=== PATIENT | female | born 1950 | race Caucasian/White ===

== ENCOUNTER 2020-12-23 08:50 | Inpatient (IN) | payer OTHER, SELFPAY ==
[2020-12-23] VITALS (24 sets, daily range): BP systolic 125–171; BP diastolic 74–90; PULSE 70–104; RESP 10–31; TEMP 35.9–36.9; O2SAT 92–99
--- NOTE | 2020-12-23 09:01 | ED.GENADUL_ITS ---
Discharge Plan Disposition Patient Disposition: [facility] INPATIENT Condition: Stable Discharge Details Clinical Impression: SBO (small bowel obstruction) Admit Date/Time: 12/23/20 15:47 Admit Provider: Rizwan Mesa Attending Provider: Rizwan Mesa Primary Care Provider: Angelica,Local ED Provider: Edmundo Slaughter Discharge Data Discharge Date/Time-TO BE ENTERED AT DEPARTURE: 12/23/20 16:25 Medical Decision Making <GRIS Candelario - Last Filed: 12/23/20 14:58> 69-year-old female, significant past surgical abdominal history, presents for 3- day history of nausea, vomiting described more as dry heaving, crampy diffuse abdominal pain, chronic loose stools. She is concerned of dehydration. Clinically she appears well, nontoxic, no distress. Abdomen is diffusely tender but without guarding, rebound or rigidity. Will obtain IV access, give IV fluids, routine laboratory values, Zofran, urinalysis, reassess. Patient received 1 L IV fluids, reports that her symptoms are improving, requesting something to eat. She was given a small run of water and some Jell- O. Laboratory values reveal a white blood cell count of 9.37 hemoglobin 15.7 hematocrit 47.1 platelet count 267. Potassium 4.1 anion gap 15.8 BUN 53 creatinine of 1.6, bilirubin 1.6, urinalysis 80 ketones. Patient will be given a second liter of IV fluid and will repeat CMP. In the meantime she is resting comfortably. The case was discussed with Dr. Cutler, please see his note. Upon his evaluation the patient reports that her pain is returning. He reports that her abdomen is tender, recommend CT imaging. CT imaging noncontrast will be obtained. Second liter given, repeat laboratory values reveal anion gap decreasing 13.3 BUN 47 creatinine 1.2 GFR 44.68, total bili 1.2. CT imaging without contrast read by radiology as findings consistent with a small bowel obstruction, transition appears to lie in the region of the mid and distal small bowel. Patient had multiple abdominal surgeries and adhesions should be considered. No abscess or free air. Discussed findings with patient. Upon reevaluation patient reports that her pain is once again decreasing. Thus far she was able to tolerate a small line of p.o. intake, water, Jell-O, did have a bowel movement today. It is a rather peculiar presentation for bowel obstruction but the CT is clearly a bowel obstruction. We will discussed the case with surgery for consultation and/or admission. Given the patient is not actively vomiting, will hold off on NG tube. Case discussed with our surgical team, Dr. Mesa. He is agreeable to admission, will come evaluate the patient here in the ER. He does request an NG tube be placed. This conversation was relayed to the patient, NG tube placed. Medical Records Medical records reviewed: Yes I reviewed the patient's medical records. Imaging Data Radiologic Study: Attestation: I personally reviewed and interpreted this imaging study as follows: Imaging: CT Scan Radiologist's impression: CT abdomen and pelvis without contrast, small bowel obstruction Lab Data Lab results reviewed: Yes I reviewed the patient's lab results. Labs: Laboratory Tests Range/Units 12/23/20 12/23/20 12/23/20 09:28 09:28 12:03 WBC (4.4-10.8) 10^3/uL 9.37 RBC (3.93-5.22) 10^6/uL 4.83 Hgb (11.2-15.7) g/dL 15.7 Hct (36.0-46.0) % 47.1 H MCV (80-95) fL 97.5 H MCH (27.0-33.0) pg 32.5 MCHC (32.0-36.0) % 33.3 RDW (11.7-14.6) % 11.7 Plt Count (130-400) 10^3/uL 267 MPV (8.0-11.0) fL 9.5 Immature Gran % 0.4 Neutrophils % 76.2 Lymphocytes % 9.4 Monocytes % 12.9 Eosinophils % 0.5 Basophils % 0.6 Nucleated RBC % % 0 Absolute Neutrophils (1.2-6.7) 10^3/uL 7.13 H Absolute Lymphocytes (1.2-3.4) 10^3/uL 0.88 L Absolute Monocytes (0.1-0.8) 10^3/uL 1.21 H Absolute Eosinophils (0.0-0.7) 10^3/uL 0.05 Absolute Basophils (0.0-0.2) 10^3/uL 0.06 Sodium (136-145) mmol/L 137 Potassium (3.5-5.1) mmol/L 4.1 Chloride (98-107) mmol/L 99 Carbon Dioxide (21.0-32.0) mmol/L 22.2 Anion Gap (3-11) mmol/L 15.8 H BUN (7-18) mg/dL 53 H Creatinine (0.55-1.02) mg/dL 1.6 H Estimated GFR/1.73 m2 (mL/min/1.73m2) 32.05 Glucose (74-106) mg/dL 90 Calcium (8.5-10.1) mg/dL 9.7 Total Bilirubin (0.2-1.0) mg/dL 1.6 H AST (15-37) U/L 19 ALT (14-59) U/L 16 Alkaline Phosphatase (46-116) U/L 83 Total Protein (6.4-8.2) g/dL 8.3 H Albumin (3.4-5.0) g/dL 4.1 Lipase (73-393) U/L 154 Urine Color (Yellow) Yellow Urine Clarity (Clear) Clear Urine pH (5-8) 5.5 Ur Specific [place] (1.005-1.025) 1.025 Urine Protein (Negative) mg/dL 30 H Urine Ketones (Negative) mg/dL 80 H Urine Blood (Negative) Negative Urine Nitrite (Negative) Negative Urine Bilirubin (Negative) Moderate H Urine Urobilinogen (Up TO 0.2) EU/dL 0.2 Ur Leukocyte Esterase (Negative) Negative Urine RBC (0-2) HPF 0-2 Urine WBC (0-5) HPF 3-5 Ur Epithelial Cells (Negative) HPF Few Urine Crystals (Negative) HPF Negative Urine Bacteria (Negative) HPF Negative Urine Casts (Negative) LPF 3-5 hyaline Urine Mucus (Negative) Trace Ur Culture Indicated? No Urine Glucose (Negative) mg/dL Negative Range/Units 12/23/20 13:06 WBC (4.4-10.8) 10^3/uL RBC (3.93-5.22) 10^6/uL Hgb (11.2-15.7) g/dL Hct (36.0-46.0) % MCV (80-95) fL MCH (27.0-33.0) pg MCHC (32.0-36.0) % RDW (11.7-14.6) % Plt Count (130-400) 10^3/uL MPV (8.0-11.0) fL Immature Gran % Neutrophils % Lymphocytes % Monocytes % Eosinophils % Basophils % Nucleated RBC % % Absolute Neutrophils (1.2-6.7) 10^3/uL Absolute Lymphocytes (1.2-3.4) 10^3/uL Absolute Monocytes (0.1-0.8) 10^3/uL Absolute Eosinophils (0.0-0.7) 10^3/uL Absolute Basophils (0.0-0.2) 10^3/uL Sodium (136-145) mmol/L 137 Potassium (3.5-5.1) mmol/L 4.1 Chloride (98-107) mmol/L 102 Carbon Dioxide (21.0-32.0) mmol/L 21.7 Anion Gap (3-11) mmol/L 13.3 H BUN (7-18) mg/dL 47 H Creatinine (0.55-1.02) mg/dL 1.2 H Estimated GFR/1.73 m2 (mL/min/1.73m2) 44.68 Glucose (74-106) mg/dL 100 Calcium (8.5-10.1) mg/dL 8.7 Total Bilirubin (0.2-1.0) mg/dL 1.2 H AST (15-37) U/L 17 ALT (14-59) U/L 14 Alkaline Phosphatase (46-116) U/L 74 Total Protein (6.4-8.2) g/dL 7.4 Albumin (3.4-5.0) g/dL 3.6 Lipase (73-393) U/L Urine Color (Yellow) Urine Clarity (Clear) Urine pH (5-8) Ur Specific [place] (1.005-1.025) Urine Protein (Negative) mg/dL Urine Ketones (Negative) mg/dL Urine Blood (Negative) Urine Nitrite (Negative) Urine Bilirubin (Negative) Urine Urobilinogen (Up TO 0.2) EU/dL Ur Leukocyte Esterase (Negative) Urine RBC (0-2) HPF Urine WBC (0-5) HPF Ur Epithelial Cells (Negative) HPF Urine Crystals (Negative) HPF Urine Bacteria (Negative) HPF Urine Casts (Negative) LPF Urine Mucus (Negative) Ur Culture Indicated? Urine Glucose (Negative) mg/dL <Matthew Cutler MD - Last Filed: 01/11/21 00:36> Patient seen, examined, and discussed with PA. Patient is significantly tender lower abdomen with some guarding. Plan to obtain CT the abdomen pelvis to assess for acute surgical pathology. I reviewed labs and given GFR, will not enhance with contrast. I agree with treatment plan as discussed with GRIS Slaughter. HPI <GRIS Candelario - Last Filed: 12/23/20 14:58> General Mode of arrival: ambulatory . Date/Time Provider Initiated Documentation: 12/23/20 09:00 . Limitations to Documentation: no limitations . Information obtained by: patient . HPI Narrative: This is a 69-year-old female who reports nausea, dry heaving, decreased p.o. intake, abdominal cramping that began on Wednesday. Her primary concern is that of dehydration. She states that she has had now 4 episodes of similar symptoms over the past couple of years although this episode has lasted longer than the others. She had an endoscopy last year, colonoscopy 4 years ago. She states that she splits time between here in [place] but her healthcare is in [place]. She has not seen a general surgeon or GI specialist for her ongoing intermittent symptoms. She denies recent travel, sick contacts, bad food exposure. She denies fever, chest pain, shortness of breath, back pain, dysuria, hematuria, black tarry stools or bright red blood in her stools. She states that she plans to return to [place] on Wednesday. Has had increased stress lately. She reports that she takes magnesium daily and this causes her to have chronically loose stools. Related Data Home Medications Medication Instructions Recorded Confirmed B12 Active 1,000 mcg PO DAILY 12/23/20 acetaminophen [Tylenol Extra 500 mg PO PRN PRN 12/23/20 12/23/20 Strength] ibandronate [Boniva] 50 mg PO QMONTH 12/23/20 magnesium oxide 400 mg PO DAILY 12/23/20 12/23/20 sertraline 5 mg PO PRN PRN 12/23/20 12/23/20 Allergies Allergy/AdvReac Type Severity Reaction Status Date / Time codeine AdvReac Intermediate nausea/dizz Unverified 12/23/20 09:04 iness oxycodone [From Percocet] AdvReac Intermediate nausea/dizz Unverified 12/23/20 09:04 iness Review of Systems <GRIS Candelario - Last Filed: 12/23/20 14:58> Constitutional Constitutional: Denies fatigue, Denies fever(s) and Denies headache(s) ENT Ears, Nose, Mouth, and Throat: Denies headache(s) Cardiovascular Cardiovascular: Denies chest pain and Denies dyspnea Respiratory Respiratory: Denies cough and Denies dyspnea Gastrointestinal Gastrointestinal: Reports abdominal pain, Denies melena, Denies hematochezia, Denies constipation, Denies diarrhea, Reports loose stools, Reports nausea and Reports vomiting Genitourinary Genitourinary: Denies dysuria Musculoskeletal Musculoskeletal: Denies back pain Integumentary/Breasts Skin/Breast: Denies rash Neurologic Neurologic: Denies headache(s) Endocrine Endocrine: Denies fatigue PFSH <GRIS Candelario - Last Filed: 12/23/20 14:58> Medical History (Updated 12/23/20 @ 23:42 by Rizwan Mesa DO) Endometriosis determined by laparoscopy Ovarian cancer Surgery in 2014 Surgical History (Updated 12/23/20 @ 23:41 by Rizwan Mesa DO) History of appendectomy History of total abdominal hysterectomy and bilateral salpingo-oophorectomy Ovarian cancer in 2014 Social History Smoking/Tobacco Use Status: Former Tobacco Use Quit Date: 07/19/86 Smoking risk assessment performed?: Yes Alcohol Intake: current Alcohol Intake frequency: 0-2 drinks per day Alcohol type: wine Substance use type: does not use Do you feel safe at home: Yes Do you feel safe in your relationship?: Yes Exam <GRIS Candelario - Last Filed: 12/23/20 14:58> Const General: cooperative, healthy appearing, comfortable and no acute distress Orientation: alert and awake [facility] Head: normal to inspection, normocephalic and atraumatic Face and sinus: normal facial exam Mouth: moist mucous membranes abnormal (Slightly dry) Eyes General: appearance normal, both eyes and all related structures Conjunctivae: conjunctivae normal Neck Neck: normal visual inspection, full ROM, trachea midline and supple Resp Effort & Inspection: normal respiratory effort and able to speak in complete sentences Auscultation: clear to auscultation bilaterally Cardio Rate: regular rate Rhythm: regular rhythm GI Palpation: soft, not firm, no guarding, no pulsatile masses and tender (Diffuse, mild) Auscultation: normal bowel sounds Back/Spine/Pelvis Back: No back tenderness Skin General skin exam: no rashes or lesions noted Neuro General: patient alert, patient awake, moves all extremities and no focal motor deficits Cognition: normal cognition Speech: speech normal Gait: normal gait Sensory Exam: no sensory deficits noted Psych Appearance: grossly normal Mental Status: mental status grossly normal
[2020-12-23] MEDS: Normal Saline 1,000 ML 1000 ML IV (09:35)
[2020-12-23] MEDS: Ondansetron 4 MG/2 ML VIAL IVP (09:36)
[2020-12-23 09:40] LABS: Abs Immature Grans 0.04 10^3/uL (0.0-0.06); Absolute Basophil Count 0.06 10^3/uL (0.0-0.2); Absolute Eosinophil Count 0.05 10^3/uL (0.0-0.7); Absolute Lymphocyte Count 0.88 10^3/uL (1.2-3.4); Absolute Monocyte Count 1.21 10^3/uL (0.1-0.8); Absolute Neutrophil Count 7.13 10^3/uL (1.2-6.7); Basophils % 0.6; Eosinophils % 0.5; HCT 47.1 % (36.0-46.0); HGB 15.7 g/dL (11.2-15.7); Immature Grans % 0.4; Lymphocytes % 9.4; MCH 32.5 pg (27.0-33.0); MCHC 33.3 % (32.0-36.0); MCV 97.5 fL (80-95); MPV 9.5 fL (8.0-11.0); Monocytes % 12.9; Neutrophils % 76.2; Nucleated RBC 0 %; Platelet Count 267 10^3/uL (130-400); RBC 4.83 10^6/uL (3.93-5.22); RDW 11.7 % (11.7-14.6); RDW-SD 42.4 fL; WBC 9.37 10^3/uL (4.4-10.8)
--- NOTE | 2020-12-23 09:45 | DI.US_ITS ---
Exam(s) US ABDOMEN LIMITED EXAM: US ABDOMEN LIMITED CLINICAL HISTORY: RUQ, pain, elevated bili TECHNIQUE: Ultrasound abdomen performed using standard protocol. COMPARISON: No exams were available for comparison FINDINGS: Limited examination of the abdomen. PANCREAS: Normal where visualized. LIVER: Normal. Hepatopedal flow in the Portal Vein. The liver measures 15.5 cm in length. GALLBLADDER: No evidence of cholelithiasis. No evidence of wall thickening. No pericholecystic fluid identified. BILIARY SYSTEM: Common bile duct measures 0.8 cm. No intrahepatic biliary ductal dilation. PEREZ'S SIGN: Negative. Right kidney: Normal in size. There does appear to be an extrarenal pelvis. No evidence of renal ca lculi. No evidence of hydronephrosis. No renal mass or cyst identified. ASCITES: None seen. IMPRESSION: 1. No evidence of cholelithiasis. No evidence of acute cholecystitis. 2. Common duct mildly distended at 0.8 cm. 3. Results of this exam have been verbally communicated with provider. DATA REPOSITORY:
--- NOTE | 2020-12-23 09:45 | NUR.NOTE ---
pt taking sips of water Nursing Note:
[2020-12-23 09:54] LABS: ALT 16 U/L (14-59); AST 19 U/L (15-37); Albumin 4.1 g/dL (3.4-5.0); Alkaline Phosphatase 83 U/L (46-116); Anion Gap 15.8 mmol/L (3-11); BUN 53 mg/dL (7-18); Bilirubin, Total 1.6 mg/dL (0.2-1.0); CO2 22.2 mmol/L (21.0-32.0); CREATININE 1.6 mg/dL (0.55-1.02); Calcium 9.7 mg/dL (8.5-10.1); Chloride 99 mmol/L (98-107); Estimated GFR 32.05 (mL/min/1.73m2); Glucose 90 mg/dL (74-106); Lipase 154 U/L (73-393); Potassium 4.1 mmol/L (3.5-5.1); Sodium 137 mmol/L (136-145); Total Protein 8.3 g/dL (6.4-8.2)
--- NOTE | 2020-12-23 10:12 | NUR.NOTE ---
tolerating PO water Nursing Note:
[2020-12-23] MEDS: Lactated Ringers 1,000 ML 1000 ML IV (11:15)
[2020-12-23 12:15] LABS: Bilirubin Moderate (Negative); Blood Negative (Negative); Clarity Clear (Clear); Glucose Negative (Negative); Ketones 80 mg/dL (Negative); Leukocyte Esterase Negative (Negative); Nitrite Negative (Negative); Specific Gravity 1.025 (1.005-1.025); Urobilinogen 0.2 EU/dL (Up TO 0.2); pH 5.5 (5-8)
[2020-12-23 12:26] LABS: Epithelial Cells Few HPF (Negative); RBC 0-2 HPF (0-2)
[2020-12-23 12:27] LABS: Bacteria Negative HPF (Negative); C & S Indicated? No; Casts 3-5 Hyaline LPF (Negative); Crystals Negative HPF (Negative); Mucus Trace (Negative)
[2020-12-23 13:39] LABS: ALT 14 U/L (14-59); AST 17 U/L (15-37); Albumin 3.6 g/dL (3.4-5.0); Alkaline Phosphatase 74 U/L (46-116); Anion Gap 13.3 mmol/L (3-11); BUN 47 mg/dL (7-18); Bilirubin, Total 1.2 mg/dL (0.2-1.0); CO2 21.7 mmol/L (21.0-32.0); CREATININE 1.2 mg/dL (0.55-1.02); Calcium 8.7 mg/dL (8.5-10.1); Chloride 102 mmol/L (98-107); Estimated GFR 44.68 (mL/min/1.73m2); Glucose 100 mg/dL (74-106); Potassium 4.1 mmol/L (3.5-5.1); Sodium 137 mmol/L (136-145); Total Protein 7.4 g/dL (6.4-8.2)
--- NOTE | 2020-12-23 14:14 | DI.CT_ITS ---
Exam(s) CT ABDOMEN PELVIS WO EXAM: CT ABDOMEN PELVIS WO CLINICAL HISTORY: abd pain. TECHNIQUE: Imaging Protocol: Axial computed tomography images with coronal and sagittal reformatted images were created and reviewed. COMPARISON: US US ABDOMEN LIMITED from 12/23/2020 FINDINGS: ABDOMEN: Lung Bases: Normal where visualized. Liver: Normal density. No measurable mass. Gallbladder and biliary tract: No cholelithiasis is identified. Common duct is distended at 1 cm. Pancreas: Normal density, no abnormal calcifications or inflammatory process. Spleen: Normal. Kidneys: Normal size, contour and axis.No radiodense stones or obstructive uropathy. No masses seen. Adrenal glands: No mass is seen. Lymph nodes: Within normal limits. Abdominal Aorta: Abdominal portion non-dilated. Mild atherosclerosis. PELVIS: Bladder:Symmetric distention, no gross wall thickening. Bowel: There are dilated loops of small bowel with air-fluid levels measuring up to 3.8 cm in diamete r. There is normal caliber distal small bowel. The colon is normal in caliber. There is diverticul osis seen in the sigmoid colon but no evidence of acute diverticulitis. No evidence of appendicitis. Peritoneal cavity: There is mild infiltration of the mesentery. No focal fluid collection is seen to suggest an abscess. No free air. Reproductive organs: The patient appears to be status post hysterectomy. Bones: Within normal limits. Soft Tissues: Within normal limits. IMPRESSION: 1. Findings consistent with a small-bowel obstruction transition appears to lie in the region of the middle and distal small bowel. The patient has had multiple abdominal surgeries and adhesions should be considered. No abscess or free air. 2. Extrahepatic biliary ductal dilatation. No cholelithiasis. Follow-up as clinically appropriate. 3. Results of this exam have been verbally communicated with provider.. RADIATION DOSE DELIVERED: 733.63mGy.cm Total DLP DATA REPOSITORY: All CT scans at this facility are submitted to the National Radiology Data Registry (NRDR) Dose Index Registry (DIR) with the [employer] (ACR). RADIATION OPTIMIZATION: All CT scans at this facility use at least one of these dose optimization te chniques: automated exposure control; mA and/or kV adjustment per patient size (includes targeted exa ms where dose is matched to clinical indication); or iterative reconstruction.
[2020-12-23] MEDS: ACETAMINOPHEN 1,000 MG/100 ML BTL 400 MG IVPB ×2 (14:32→20:10)
[2020-12-23 15:14] LABS: Source Nasal/Nares
[2020-12-23] MEDS: Lidocaine 2% Jelly 6 ML SYR (15:25)
[2020-12-23 16:12] LABS: Abs Immature Grans 0.04 10^3/uL (0.0-0.06); Absolute Basophil Count 0.04 10^3/uL (0.0-0.2); Absolute Eosinophil Count 0.08 10^3/uL (0.0-0.7); Absolute Lymphocyte Count 0.95 10^3/uL (1.2-3.4); Absolute Monocyte Count 1.01 10^3/uL (0.1-0.8); Absolute Neutrophil Count 5.25 10^3/uL (1.2-6.7); Basophils % 0.5; Eosinophils % 1.1; HCT 38.1 % (36.0-46.0); Immature Grans % 0.5; Lymphocytes % 12.9; MCH 33.1 pg (27.0-33.0); MCHC 33.9 % (32.0-36.0); MCV 97.7 fL (80-95); MPV 9.3 fL (8.0-11.0); Monocytes % 13.7; Neutrophils % 71.3; Nucleated RBC 0 %; Platelet Count 223 10^3/uL (130-400); RDW 11.8 % (11.7-14.6); RDW-SD 42.3 fL; WBC 7.37 10^3/uL (4.4-10.8)
[2020-12-23 16:13] LABS: HGB 12.9 g/dL (11.2-15.7)
[2020-12-23 16:27] LABS: Troponin I < 0.05 ng/mL (<0.06)
[2020-12-23] MEDS: Normal Saline 1,000 ML 150 ML IV (17:50)
[2020-12-23 19:14] LABS: Troponin I < 0.05 ng/mL (<0.06)
[2020-12-23 21:02] LABS: COVID-19 PCR Negative (Negative)
[2020-12-23] MEDS: HYDROmorphone 2 MG/ML VIAL 0.5 MG IVP (21:33)
--- NOTE | 2020-12-23 21:35 | HPE_ITS ---
Date of service: 12/23/20 Time of Service: 21:00 Assessment and Plan Assessment and plan (1) SBO (small bowel obstruction): Start date: 12/19/20 Status: Acute Assessment and plan: N.p.o. NG tube to low intermittent wall suction. IV fluids. A.m. labs. May ambulate for 30 minutes with tube clamped. May have ice chips while tube on suction. Pain control History of Present Illness History of Present Illness Chief Complaint: Abdominal pain and nausea vomiting Narrative: This is a very pleasant 69-year-old female who came in with a 4-day history of abdominal pain nausea vomiting and diarrhea. She has a history of multiple abdominal surgeries including for bowel obstruction, appendicitis, endometriosis and ovarian cancer in 2014. She had a watery bowel movement last night and last vomited 2 days ago. She denies any fever or chills. Palpation makes the pain worse, nothing makes it better. The pain is constant and dull, located in the mid abdomen. A CT of the abdomen is consistent with a partial small bowel obstruction. Review of Systems All systems reviewed & are unremarkable except as noted in HPI and below PFSH Medical History (Updated 12/23/20 @ 23:42 by Rizwan Mesa DO) Endometriosis determined by laparoscopy Ovarian cancer Surgery in 2014 Surgical History (Updated 12/23/20 @ 23:41 by Rizwan Mesa DO) History of appendectomy History of total abdominal hysterectomy and bilateral salpingo-oophorectomy Ovarian cancer in 2014 Social History Smoking/Tobacco Use Status: Former Tobacco Use Quit Date: 07/19/86 Smoking risk assessment performed?: Yes Alcohol Intake: current Alcohol Intake frequency: 0-2 drinks per day Alcohol type: wine Substance use type: does not use Do you feel safe at home: Yes Do you feel safe in your relationship?: Yes Meds Allergies and Home Medications Allergies Allergy/AdvReac Type Severity Reaction Status Date / Time codeine AdvReac Intermediate nausea/dizz Unverified 12/23/20 09:04 iness oxycodone [From Percocet] AdvReac Intermediate nausea/dizz Unverified 12/23/20 09:04 iness Home Medications Medication Instructions Recorded Confirmed Type acetaminophen [Tylenol Extra 500 mg PO PRN PRN 12/23/20 12/23/20 History Strength] ibandronate [Boniva] 50 mg PO QMONTH 12/23/20 History magnesium oxide 400 mg PO DAILY 12/23/20 12/23/20 History mecobalamin (vitamin B12) [B12 1,000 mcg PO DAILY 12/23/20 History Active] sertraline 5 mg PO PRN PRN 12/23/20 12/23/20 History Exam Const General: cooperative and healthy appearing Nutritional Appearance: average body habitus Orientation: alert, awake and oriented x3 [place]EN[place] Head: normal to inspection, normocephalic and atraumatic Eyes General: appearance normal, both eyes and all related structures Conjunctivae: conjunctivae normal Pupils: PERRL Neck Neck: normal visual inspection, full ROM and trachea midline Chest Chest: normal inspection of the chest and normal palpation of entire chest wall Resp Effort & Inspection: normal respiratory effort, able to speak in complete sentences and no use of accessory muscles Cardio Jugular venous pressure: no JVD Rate: regular rate Rhythm: regular rhythm GI Inspection: distended Palpation: soft and tender Skin General skin exam: no rashes or lesions noted Lesions: no lesions Neuro General: patient alert, patient awake, patient oriented x3 and moves all extremities Extrem General: normal to inspection and full ROM Psych Appearance: grossly normal and well kempt Mental Status: mental status grossly normal Speech and Movement: speech and movement normal Results Labs Result diagrams: 12/23/20 16:06 12/23/20 13:06 Labs: Laboratory Results - last 24 hr 12/23/20 12/23/20 12/23/20 09:28 09:28 12:03 WBC 9.37 RBC 4.83 Hgb 15.7 Hct 47.1 H MCV 97.5 H MCH 32.5 MCHC 33.3 RDW 11.7 Plt Count 267 MPV 9.5 Immature Gran % 0.4 Neutrophils % 76.2 Lymphocytes % 9.4 Monocytes % 12.9 Eosinophils % 0.5 Basophils % 0.6 Nucleated RBC % 0 Absolute Neutrophils 7.13 H Absolute Lymphocytes 0.88 L Absolute Monocytes 1.21 H Absolute Eosinophils 0.05 Absolute Basophils 0.06 Sodium 137 Potassium 4.1 Chloride 99 Carbon Dioxide 22.2 Anion Gap 15.8 H BUN 53 H Creatinine 1.6 H Estimated GFR/1.73 m2 32.05 Glucose 90 Calcium 9.7 Total Bilirubin 1.6 H AST 19 ALT 16 Alkaline Phosphatase 83 Troponin I Total Protein 8.3 H Albumin 4.1 Lipase 154 Urine Color Yellow Urine Clarity Clear Urine pH 5.5 Ur Specific [place] 1.025 Urine Protein 30 H Urine Ketones 80 H Urine Blood Negative Urine Nitrite Negative Urine Bilirubin Moderate H Urine Urobilinogen 0.2 Ur Leukocyte Esterase Negative Urine RBC 0-2 Urine WBC 3-5 Ur Epithelial Cells Few Urine Crystals Negative Urine Bacteria Negative Urine Casts 3-5 hyaline Urine Mucus Trace Ur Culture Indicated? No Urine Glucose Negative COVID-19 Source SARS-CoV-2 (PCR) 12/23/20 12/23/20 12/23/20 13:06 15:08 16:06 WBC RBC Hgb Hct MCV MCH MCHC RDW Plt Count MPV Immature Gran % Neutrophils % Lymphocytes % Monocytes % Eosinophils % Basophils % Nucleated RBC % Absolute Neutrophils Absolute Lymphocytes Absolute Monocytes Absolute Eosinophils Absolute Basophils Sodium 137 Potassium 4.1 Chloride 102 Carbon Dioxide 21.7 Anion Gap 13.3 H BUN 47 H Creatinine 1.2 H Estimated GFR/1.73 m2 44.68 Glucose 100 Calcium 8.7 Total Bilirubin 1.2 H AST 17 ALT 14 Alkaline Phosphatase 74 Troponin I < 0.05 Total Protein 7.4 Albumin 3.6 Lipase Urine Color Urine Clarity Urine pH Ur Specific [place] Urine Protein Urine Ketones Urine Blood Urine Nitrite Urine Bilirubin Urine Urobilinogen Ur Leukocyte Esterase Urine RBC Urine WBC Ur Epithelial Cells Urine Crystals Urine Bacteria Urine Casts Urine Mucus Ur Culture Indicated? Urine Glucose COVID-19 Source Nasal/nares SARS-CoV-2 (PCR) Negative 12/23/20 12/23/20 16:06 18:50 WBC 7.37 RBC 3.90 L Hgb 12.9 D Hct 38.1 MCV 97.7 H MCH 33.1 H MCHC 33.9 RDW 11.8 Plt Count 223 MPV 9.3 Immature Gran % 0.5 Neutrophils % 71.3 Lymphocytes % 12.9 Monocytes % 13.7 Eosinophils % 1.1 Basophils % 0.5 Nucleated RBC % 0 Absolute Neutrophils 5.25 Absolute Lymphocytes 0.95 L Absolute Monocytes 1.01 H Absolute Eosinophils 0.08 Absolute Basophils 0.04 Sodium Potassium Chloride Carbon Dioxide Anion Gap BUN Creatinine Estimated GFR/1.73 m2 Glucose Calcium Total Bilirubin AST ALT Alkaline Phosphatase Troponin I < 0.05 Total Protein Albumin Lipase Urine Color Urine Clarity Urine pH Ur Specific [place] Urine Protein Urine Ketones Urine Blood Urine Nitrite Urine Bilirubin Urine Urobilinogen Ur Leukocyte Esterase Urine RBC Urine WBC Ur Epithelial Cells Urine Crystals Urine Bacteria Urine Casts Urine Mucus Ur Culture Indicated? Urine Glucose COVID-19 Source SARS-CoV-2 (PCR) Last Vital Signs Temp 98.4 F 12/23/20 16:40 Pulse 77 12/23/20 16:40 Resp 17 12/23/20 16:40 BP 159/75 H 12/23/20 16:40 Pulse Ox 98 12/23/20 16:40 COVID-19 Screening Have you, or household traveled for leisure in last 14 days?: No Had IN PERSON contact w/suspected or confirmed C-19 person: No H&P: Quality VTE Documentation of Mechanical Device: Intermittent pneumatic compression stockings
[2020-12-24 00:01] VITALS: BP 140/82; PULSE 55; RESP 20; TEMP 36.7; O2SAT 97
[2020-12-24] MEDS: Normal Saline 1,000 ML 150 ML IV ×3 (00:31→17:26)
[2020-12-24] MEDS: HYDROmorphone 2 MG/ML VIAL 0.5 MG IVP ×3 (01:46→20:28)
[2020-12-24 06:09] LABS: Abs Immature Grans 0.02 10^3/uL (0.0-0.06); Absolute Basophil Count 0.04 10^3/uL (0.0-0.2); Absolute Eosinophil Count 0.04 10^3/uL (0.0-0.7); Absolute Lymphocyte Count 0.64 10^3/uL (1.2-3.4); Absolute Monocyte Count 1.21 10^3/uL (0.1-0.8); Absolute Neutrophil Count 6.45 10^3/uL (1.2-6.7); Basophils % 0.5; Eosinophils % 0.5; HCT 37.3 % (36.0-46.0); HGB 12.3 g/dL (11.2-15.7); Immature Grans % 0.2; Lymphocytes % 7.6; MCH 32.8 pg (27.0-33.0); MCV 99.5 fL (80-95); MPV 9.6 fL (8.0-11.0); Monocytes % 14.4; Neutrophils % 76.8; Nucleated RBC 0 %; Platelet Count 217 10^3/uL (130-400); RBC 3.75 10^6/uL (3.93-5.22); RDW 11.9 % (11.7-14.6); RDW-SD 43.7 fL
[2020-12-24 06:27] LABS: ALT 14 U/L (14-59); AST 14 U/L (15-37); Alkaline Phosphatase 62 U/L (46-116); Anion Gap 14.5 mmol/L (3-11); BUN 36 mg/dL (7-18); Bilirubin, Total 0.9 mg/dL (0.2-1.0); CO2 20.5 mmol/L (21.0-32.0); CREATININE 1.1 mg/dL (0.55-1.02); Calcium 7.8 mg/dL (8.5-10.1); Chloride 106 mmol/L (98-107); Estimated GFR 49.39 (mL/min/1.73m2); Glucose 72 mg/dL (74-106); Magnesium 1.7 mg/dL (1.8-2.4); Potassium 3.7 mmol/L (3.5-5.1); Sodium 141 mmol/L (136-145); Total Protein 6.1 g/dL (6.4-8.2)
[2020-12-24 08:03] VITALS: BP 133/79; PULSE 76; RESP 22; TEMP 37.5; O2SAT 97
[2020-12-24] MEDS: Normal Saline Flush 10 ML SYR IVP ×2 (09:29→20:28)
--- NOTE | 2020-12-24 11:04 | INITIAL_ITS ---
- If Service Date Differs Date of service: 12/24/20 Time of Service: 11:04 Care Management Initial Assess REASON FOR HOSPITALIZATION:: Partial Small Bowel Obstruction PAST MEDICAL HISTORY/PAST SURGICAL HISTORY:: Medical History. Endometriosis determined by laparoscopy. Ovarian cancer. Surgery in 2014. Surgical History. History of appendectomy. History of total abdominal hysterectomy and bilateral salpingo-oophorectomy. Ovarian cancer in 2014 PREVIOUS FUNCTIONAL STATUS/SOCIAL/FAMILY SUPPORTS:: Chaz splits her time between [place] and [place], but receives her primary medical care in [place]. She lives with her s/o, Ra, and they are both retired teachers. She is independent at baseline. CURRENT FUNCTIONAL STATUS:: Chaz was lying in bed when CM met with her. She has an NG tube in place. She stated that she is tired, as she did not sleep well last night. She reported that per provider, she will likely remain at [facility] for another couple of days, until her SBO is resolved. She stated that [facility], and is agreeable to the plan. Ra, whom she lives with, was in the room, visiting. CM will continue to follow. ADVANCE DIRECTIVES:: None on file. Has patient been provided with info about the portal/API?: Yes Did the patient sign up for the portal?: No CODE STATUS:: Full Code INSURANCE COVERAGE / FINANCIAL ISSUES:: Commercial MCR replacement- [employer] CURRENT HOME/COMMUNITY SERVICES/EQUIPMENT:: No current services or equipment. PRIMARY CARE PHYSICIAN:: Not local. POTENTIAL DISCHARGE NEEDS:: Follow up appointments with local PCP. PATIENT/FAMILY EDUCATION NEEDS:: Review discharge instructions regarding activity and medications, discussion of self care needs such as ask me three. ANTICIPATED BARRIERS TO DISCHARGE:: None identified. TRANSPORTATION:: Via private vehicle by a friend. PLAN:: Anticipate Chaz will return home via private vehicle once medically cleared. She will follow up with her local PCP and discharge plan of care. CM will continue to follow.
--- NOTE | 2020-12-24 12:13 | NUR.NOTE ---
Advanced NG tube to [address] Mesa's verbal order.
[2020-12-24] MEDS: ACETAMINOPHEN 1,000 MG/100 ML BTL 400 MG IVPB ×2 (12:20→21:21)
--- NOTE | 2020-12-24 12:50 | W.PM.PROGNOT ---
Date of Service Date of service: 12/24/20 Time of Service: 12:50 Assessment and Plan Assessment and plan (1) SBO (small bowel obstruction): Status: Acute Assessment and plan: Improving. N.p.o. NG tube to low intermittent wall suction. Tube was advanced to 60 cm today. IV fluids. A.m. labs. May ambulate for 30 minutes with tube clamped. May have ice chips while tube on suction. Pain control Subjective Subjective Interval history since last seen: Patient's abdominal pain and nausea have improved. She has not had any emesis overnight and is passing flatus and had a small liquid bowel movement. She ambulated in the halls today. Exam Const General: cooperative and healthy appearing Nutritional Appearance: average body habitus Orientation: alert, awake and oriented x3 Resp Effort & Inspection: normal respiratory effort, able to speak in complete sentences and no use of accessory muscles Cardio Jugular venous pressure: no JVD Rate: regular rate Rhythm: regular rhythm GI Inspection: distended Palpation: soft and tender Neuro General: patient alert, patient awake, patient oriented x3 and moves all extremities Objective Last Vital Signs Temp 99.5 F 12/24/20 08:03 Pulse 76 12/24/20 08:03 Resp 22 12/24/20 08:03 BP 133/79 12/24/20 08:03 Pulse Ox 97 12/24/20 08:03 Laboratory Results - last 24 hr 12/23/20 12/23/20 12/23/20 13:06 15:08 16:06 WBC RBC Hgb Hct MCV MCH MCHC RDW Plt Count MPV Immature Gran % Neutrophils % Lymphocytes % Monocytes % Eosinophils % Basophils % Nucleated RBC % Absolute Neutrophils Absolute Lymphocytes Absolute Monocytes Absolute Eosinophils Absolute Basophils Sodium 137 Potassium 4.1 Chloride 102 Carbon Dioxide 21.7 Anion Gap 13.3 H BUN 47 H Creatinine 1.2 H Estimated GFR/1.73 m2 44.68 Glucose 100 Calcium 8.7 Magnesium Total Bilirubin 1.2 H AST 17 ALT 14 Alkaline Phosphatase 74 Troponin I < 0.05 Total Protein 7.4 Albumin 3.6 COVID-19 Source Nasal/nares SARS-CoV-2 (PCR) Negative 12/23/20 12/23/20 12/24/20 16:06 18:50 05:40 WBC 7.37 RBC 3.90 L Hgb 12.9 D Hct 38.1 MCV 97.7 H MCH 33.1 H MCHC 33.9 RDW 11.8 Plt Count 223 MPV 9.3 Immature Gran % 0.5 Neutrophils % 71.3 Lymphocytes % 12.9 Monocytes % 13.7 Eosinophils % 1.1 Basophils % 0.5 Nucleated RBC % 0 Absolute Neutrophils 5.25 Absolute Lymphocytes 0.95 L Absolute Monocytes 1.01 H Absolute Eosinophils 0.08 Absolute Basophils 0.04 Sodium 141 Potassium 3.7 Chloride 106 Carbon Dioxide 20.5 L Anion Gap 14.5 H BUN 36 H D Creatinine 1.1 H Estimated GFR/1.73 m2 49.39 Glucose 72 L Calcium 7.8 L Magnesium 1.7 L Total Bilirubin 0.9 AST 14 L ALT 14 Alkaline Phosphatase 62 Troponin I < 0.05 Total Protein 6.1 L Albumin 3.0 L COVID-19 Source SARS-CoV-2 (PCR) 12/24/20 05:40 WBC 8.40 RBC 3.75 L Hgb 12.3 Hct 37.3 MCV 99.5 H MCH 32.8 MCHC 33.0 RDW 11.9 Plt Count 217 MPV 9.6 Immature Gran % 0.2 Neutrophils % 76.8 Lymphocytes % 7.6 Monocytes % 14.4 Eosinophils % 0.5 Basophils % 0.5 Nucleated RBC % 0 Absolute Neutrophils 6.45 Absolute Lymphocytes 0.64 L Absolute Monocytes 1.21 H Absolute Eosinophils 0.04 Absolute Basophils 0.04 Sodium Potassium Chloride Carbon Dioxide Anion Gap BUN Creatinine Estimated GFR/1.73 m2 Glucose Calcium Magnesium Total Bilirubin AST ALT Alkaline Phosphatase Troponin I Total Protein Albumin COVID-19 Source SARS-CoV-2 (PCR)
[2020-12-24] MEDS: MAGNESIUM SULFATE 2 GM/50 ML BAG IVPB (14:09)
--- NOTE | 2020-12-24 15:07 | CHAPLAIN ---
Chaz was resting in bed when I visited. She said she lives in [place] and was visiting her SO here, and travels between the two places, but her health care is usually in [place]. She's had similar symptoms before, but they haven't lasted this long, she said. Her SO is coming to visit and brining her a new book.
[2020-12-24 15:21] VITALS: BP 127/80; PULSE 84; RESP 16; TEMP 37.1; O2SAT 97
[2020-12-24 23:31] VITALS: BP 130/78; PULSE 82; RESP 17; TEMP 36.6; O2SAT 97
[2020-12-25] MEDS: HYDROmorphone 2 MG/ML VIAL 0.5 MG IVP ×3 (00:35→20:44)
[2020-12-25] MEDS: Normal Saline Flush 10 ML SYR IVP ×3 (00:36→20:44)
[2020-12-25] MEDS: Normal Saline 1,000 ML 150 ML IV ×4 (01:00→21:36)
[2020-12-25 07:39] VITALS: BP 131/71; PULSE 75; RESP 16; TEMP 36.2; O2SAT 96
--- NOTE | 2020-12-25 09:55 | CMPROGNOTE_ITS ---
- If Service Date Differs Date of service: 12/25/20 Time of Service: 09:55 Care Management Progress Note S/O: Chaz was sitting up in bed when CM met with her. Her NG tube has been removed, which she reports being happy about. She stated that she did not sleep well with the NG tube in place. She reported that she feels much better today, and per MD, she may be ready for discharge in the next day or two, depending on how she does without the NG tube, her pain control, and diet tolerance. CM will continue to follow. A: Chaz is a 69 year old female admitted to [facility] on 12/23/20 with a partial small bowel obstruction. P: Anticipate Chaz will return home via private vehicle once medically cleared. She will follow up with her local PCP and discharge plan of care. CM will continue to follow.
--- NOTE | 2020-12-25 10:06 | PGE_ITS ---
Date of Service Date of service: 12/25/20 Time of Service: 10:06 Assessment and Plan Assessment and plan (1) SBO (small bowel obstruction): Status: Acute Assessment and plan: Abdominal pain has improved (+) Flatus and BMs D/C NG tube Will start clear liquids Encouraged ambulation and activity OOB. Subjective Subjective Interval history since last seen: Patient reports her abdominal pain has improved signficiantly. She denies having any nausea or vomiting. (+) BMs and Fl atus. Exam Const General: cooperative, healthy appearing and comfortable Orientation: alert and oriented x3 Resp Effort & Inspection: normal respiratory effort, no audible wheezes and no cough GI Palpation: soft, no guarding and nontender Auscultation: normal bowel sounds Other: NG tube in place. Objective Last Vital Signs Temp 36.2 C L 12/25/20 07:39 Pulse 75 12/25/20 07:39 Resp 16 12/25/20 07:39 BP 131/71 12/25/20 07:39 Pulse Ox 96 12/25/20 07:39
[2020-12-25 11:26] LABS: Abs Immature Grans 0.01 10^3/uL (0.0-0.06); Absolute Basophil Count 0.04 10^3/uL (0.0-0.2); Absolute Eosinophil Count 0.08 10^3/uL (0.0-0.7); Absolute Lymphocyte Count 0.74 10^3/uL (1.2-3.4); Absolute Monocyte Count 0.92 10^3/uL (0.1-0.8); Absolute Neutrophil Count 4.02 10^3/uL (1.2-6.7); Basophils % 0.7; Eosinophils % 1.4; HCT 35.5 % (36.0-46.0); HGB 11.4 g/dL (11.2-15.7); Immature Grans % 0.2; Lymphocytes % 12.7; MCH 32.7 pg (27.0-33.0); MCHC 32.1 % (32.0-36.0); MCV 101.7 fL (80-95); MPV 9.6 fL (8.0-11.0); Monocytes % 15.8; Neutrophils % 69.2; Nucleated RBC 0 %; Platelet Count 209 10^3/uL (130-400); RBC 3.49 10^6/uL (3.93-5.22); RDW-SD 44.8 fL; WBC 5.81 10^3/uL (4.4-10.8)
[2020-12-25 11:34] LABS: Anion Gap 15.7 mmol/L (3-11); BUN 25 mg/dL (7-18); CO2 18.3 mmol/L (21.0-32.0); CREATININE 0.9 mg/dL (0.55-1.02); Calcium 7.5 mg/dL (8.5-10.1); Chloride 108 mmol/L (98-107); Potassium 3.6 mmol/L (3.5-5.1); Sodium 142 mmol/L (136-145)
[2020-12-25 11:44] LABS: Glucose 56 mg/dL (74-106)
--- NOTE | 2020-12-25 12:58 | CHAPLAIN ---
Chaz said she is feeling better today. Her NG tube is out and she'll be starting clear liquids at lunch today. She thinks she'll be here a day or two more. She's from [place], [place], but has a SO in the area here and was visiting when she became sick. She said she's been through this before, so knows what to expect.
[2020-12-25 16:10] VITALS: BP 137/72; PULSE 72; RESP 17; TEMP 36.4; O2SAT 98
[2020-12-25 23:00] VITALS: BP 136/74; PULSE 70; RESP 17; TEMP 36.3; O2SAT 98
[2020-12-26] MEDS: ACETAMINOPHEN 1,000 MG/100 ML BTL 400 MG IVPB (02:29)
[2020-12-26] MEDS: Normal Saline 1,000 ML 150 ML IV (04:27)
[2020-12-26 08:21] VITALS: BP 131/86; PULSE 70; RESP 17; TEMP 36.7; O2SAT 93
--- NOTE | 2020-12-26 09:27 | W.PM.PROGNOT ---
Date of Service Date of service: 12/26/20 Time of Service: 09:27 Assessment and Plan Assessment and plan (1) SBO (small bowel obstruction): Status: Acute Assessment and plan: Abdominal pain has resolved (+) Flatus and BMs D/C NG tube Will progress diet to full liquids and soft foods. Encouraged ambulation and activity OOB. If tolerating progression in her diet, possible d/c home later today. Subjective Subjective Interval history since last seen: Patient denies having any abdominal pain at this time. She is eager to be d/c home today. Exam Const General: cooperative, healthy appearing and comfortable Orientation: alert and oriented x3 Resp Effort & Inspection: normal respiratory effort, no audible wheezes and no cough GI Palpation: soft, no guarding and nontender Auscultation: normal bowel sounds Objective Last Vital Signs Temp 36.7 C 12/26/20 08:21 Pulse 70 12/26/20 08:21 Resp 17 12/26/20 08:21 BP 131/86 12/26/20 08:21 Pulse Ox 93 12/26/20 08:21 Laboratory Results - last 24 hr 12/25/20 12/25/20 11:20 11:20 WBC 5.81 RBC 3.49 L Hgb 11.4 Hct 35.5 L MCV 101.7 H MCH 32.7 MCHC 32.1 RDW 12.0 Plt Count 209 MPV 9.6 Immature Gran % 0.2 Neutrophils % 69.2 Lymphocytes % 12.7 Monocytes % 15.8 Eosinophils % 1.4 Basophils % 0.7 Nucleated RBC % 0 Absolute Neutrophils 4.02 Absolute Lymphocytes 0.74 L Absolute Monocytes 0.92 H Absolute Eosinophils 0.08 Absolute Basophils 0.04 Sodium 142 Potassium 3.6 Chloride 108 H Carbon Dioxide 18.3 L Anion Gap 15.7 H BUN 25 H D Creatinine 0.9 Estimated GFR/1.73 m2 >= 60.00 Glucose 56 L Calcium 7.5 L Magnesium 2.0
--- NOTE | 2020-12-26 14:10 | DSE_ITS ---
Date of service: 12/26/20 Time of Service: 14:11 DS: Diagnosis Discharge Diagnosis (1) SBO (small bowel obstruction): Status: Acute Discharge Plan Disposition Patient Disposition: HOME Condition: Stable Discharge Details Reason For Visit: PARTIAL SMALL BOWEL OBSTRUCTION Admit Date/Time: 12/23/20 15:47 Admit Provider: Rizwan Mesa Attending Provider: Rizwan Mesa Primary Care Provider: Angelica,Local Hospital Course Hospital Course: 70 y/o female with a history of numerous abdominal surgeries presented with c/o abdominal pain, nausea and vomiting. CT scan demonstrated small bowel obstruction. She was treated with IV hydration, NG tube decompression and bowel rest. Her symptoms improved after a day of bowel rest and NG tube decompression. She started passing flatus and having BMs. She was slowly started on a clear liquid diet and this was progressed to a soft diet. Which she tolerated well without any pain or discomfort. Her symptoms have continued to be resolved. D/C home She will need to follow up with her PCP in [place] in 2 weeks. Home Meds and New Rx's Prescriptions: Continued magnesium oxide 400 mg magnesium Tablet 400 mg PO DAILY RF: 0 B12 Active 1,000 mcg Tablet,Chewable 1,000 mcg PO DAILY RF: 0 ibandronate [Boniva] 150 mg Tablet 50 mg PO QMONTH RF: 0 sertraline 25 mg Tablet 5 mg PO PRN PRNRF: 0 acetaminophen [Tylenol Extra Strength] 500 mg Tablet 500 mg PO PRN PRNRF: 0 Discharge Instructions Instructions: Soft Diet (DC), Bowel Obstruction (DC), GI (Gastrointestinal) Soft Diet (DC), GI (Gastrointestinal) Soft Diet (GEN) Activity:: Activity as Tolerated Equipment/Supplies:: No Equipment Needed Diet:: As Tolerated DS: Summary Time Spent with Patient providing and/or coordinating discharge services: Less than 30 minutes Status at Discharge Functional status at discharge: independent ambulation Overall status at discharge: patient is back to baseline Mental Status: mental status grossly normal Speech and Movement: speech and movement normal Mood: congruent mood Affect: normal affect Quality: VTE Documentation of Mechanical Device: Intermittent pneumatic compression stockings Exam Psych Mental Status: mental status grossly normal Speech and Movement: speech and movement normal Mood: congruent mood Affect: normal affect DS: Data Vitals/I&O Vitals and I&O: Vital Signs Temperature 36.7 C 06/10/21 08:21 Temperature Source Temporal Artery Scan 12/26/20 08:21 Pulse 70 12/26/20 08:21 Pulse Rhythm Irregular 12/26/20 09:35 Pulse 86 12/23/20 16:01 Respiratory Rate 17 12/26/20 08:21 Respiratory Effort Non-Labored 12/26/20 09:35 Respiratory Depth Normal 12/26/20 09:35 Respiratory Pattern Normal 12/26/20 09:35 Blood Pressure 131/86 12/26/20 08:21 Blood Pressure Mean 115 12/23/20 16:00 Blood Pressure Position Sitting 12/23/20 08:54 Pulse Oximetry 93 12/26/20 08:21 Oxygen Delivery Method Room Air 12/26/20 08:21 Oxygen Flow Rate 0 12/26/20 08:21 Pain Level 0 12/26/20 08:21 Comment 12/23/20 08:54 Intake & Output 12/25/20 12/26/20 12/26/20 18:59 06:59 18:59 Intake Total 2750 / 4960 2210 / 4960 360 / 360 Output Total 1200 / 2170 970 / 2170 1300 / 1300 Balance 1550 / 2790 1240 / 2790 -940 / -940 Intake: IV 2000 / 4110 2110 / 4110 Oral 750 / 850 100 / 850 360 / 360 Output: Urine 1200 / 2170 970 / 2170 1300 / 1300 Other: Urine Color Straw Yellow Pale Yellow Urine Appearance Clear Clear Clear Urine Odor Strong Normal Normal Stool Size Moderate Moderate Stool Characteristics Soft Soft Liquid Brown Brown Brown Voiding Methods Toilet Toilet Toilet [facility] Medical History (Updated 12/23/20 @ 23:42 by Rizwan Mesa DO) Endometriosis determined by laparoscopy Ovarian cancer Surgery in 2014 Surgical History (Updated 12/23/20 @ 23:41 by Rizwan Mesa DO) History of appendectomy History of total abdominal hysterectomy and bilateral salpingo-oophorectomy Ovarian cancer in 2014 Social History Smoking/Tobacco Use Status: Former Tobacco Use Quit Date: 07/19/86 Smoking risk assessment performed?: Yes Alcohol Intake: current Alcohol Intake frequency: 0-2 drinks per day Alcohol type: wine Substance use type: does not use Do you feel safe at home: Yes Do you feel safe in your relationship?: Yes
--- NOTE | 2020-12-26 15:56 | PDOC.CMDIS ---
- If Service Date Differs Date of service: 12/26/20 Time of Service: 15:56 LACE Index Scoring Tool - Questions: Length of Stay (in days): 3 Acuity (Admit via E.D.?): Yes E.D. Visits: 1 - Answers: Total Score: 7 Risk of Readmission: Low Risk Care Management Discharge Reason for Hospitalization: Partial Small Bowel Obstruction Discharge Plan: Chaz will return home with no additional services. Her s/o will drive her home via private vehicle. She will follow up with her providers in [place]. She is happy to be going home. Patient/Family Education Needs: Review discharge instructions, discuss self care needs including ask me three.
[2020-12-26 16:18] VITALS: BP 145/93; PULSE 73; RESP 18; TEMP 37.4; O2SAT 97
== END 2020-12-26 18:16 | disposition home or self-care (01) | DRG 390 ==
LOC: ER 16:06 → MS 16:28
PROVIDERS: Admitting Provider Surgery; Emergency Provider Physician Assistant; Visit Provider Surgery
DX: K56.600 Partial intestinal obstruction, unspecified as to cause (principal); Z20.822 Contact with and (suspected) exposure to COVID-19
CPT/HCPCS: 36415; 80048; 80053; 83690; 87635; 96361; 96374; 96375; 99222; 99231; 99238; 99285; 74176; 76705; 81003; 81015; 83735; 84484; 85025; 99284; J0131; J2405